=== PATIENT | female | born 1985 | race Two or more races ===

== ENCOUNTER → 2019-08-29 | Outpatient (CLI) | payer OTHER | END | disposition home or self-care (01) | LOC: TOM 07:15 → RAD 07:19 | DX: Z12.31 Encounter for screening mammogram for malignant neoplasm of breast (principal); Z87.898 Personal history of other specified conditions; N64.4 Mastodynia ==

== ENCOUNTER 2022-04-10 08:10 | Outpatient (CLI) | payer OTHER | END 2022-04-10 08:23 | disposition home or self-care (01) | LOC: RX STUDY 08:10 | PROVIDERS: ATTEND Specialist | DX: N93.8 Other specified abnormal uterine and vaginal bleeding (principal) ==

== ENCOUNTER 2025-01-29 07:27 | Outpatient (CLI) | payer OTHER | END 2025-01-29 07:29 | disposition home or self-care (01) | LOC: MAMO-SONO 07:27 | DX: Z12.39 Encounter for other screening for malignant neoplasm of breast (principal) ==